=== PATIENT | female | born 1965 | race Caucasian/White ===

== ENCOUNTER → 2019-03-24 08:46 | Outpatient (BNVA) | payer BC, SELFPAY | PROVIDERS: Family Provider Family Medicine; PCP Family Medicine; Visit Provider Family Medicine | DX: E03.9 Hypothyroidism, unspecified (principal); R03.0 Elevated blood-pressure reading, without diagnosis of hypertension; Z13.220 Encounter for screening for lipoid disorders; Z13.6 Encounter for screening for cardiovascular disorders; Z13.1 Encounter for screening for diabetes mellitus; Z68.31 Body mass index [BMI] 31.0-31.9, adult | CPT/HCPCS: 80048; 80061; 84439; 84443; 84481 ==

== ENCOUNTER → 2020-02-13 16:43 | Outpatient (BNVA) | payer BC, SELFPAY | PROVIDERS: Family Provider Family Medicine; PCP Family Medicine; Visit Provider Family Medicine | DX: R03.0 Elevated blood-pressure reading, without diagnosis of hypertension (principal); E03.9 Hypothyroidism, unspecified; E83.52 Hypercalcemia; M70.52 Other bursitis of knee, left knee; M70.61 Trochanteric bursitis, right hip; R41.3 Other amnesia | CPT/HCPCS: 80048; 80061; 82652; 84443 ==

== ENCOUNTER → 2020-09-21 11:16 | Outpatient (BNVA) | payer BC, SELFPAY | PROVIDERS: Family Provider Family Medicine; PCP Family Medicine; Visit Provider Family Medicine | DX: E03.9 Hypothyroidism, unspecified (principal); R25.2 Cramp and spasm | CPT/HCPCS: 80048; 83735; 84439; 84443; 84481 ==

== ENCOUNTER → 2021-08-28 09:27 | Outpatient (BNVA) | payer OTHER, SELFPAY | PROVIDERS: Family Provider Family Medicine; PCP Family Medicine; Visit Provider Family Medicine | DX: E03.8 Other specified hypothyroidism (principal); M62.830 Muscle spasm of back; Z12.4 Encounter for screening for malignant neoplasm of cervix; Z13.1 Encounter for screening for diabetes mellitus | CPT/HCPCS: 80053; 84439; 84443; 84481; 87624 ==

== ENCOUNTER → 2022-09-01 09:40 | Outpatient (BNVA) | payer BC, SELFPAY | PROVIDERS: Family Provider Family Medicine; PCP Family Medicine; Visit Provider Family Medicine | DX: E03.9 Hypothyroidism, unspecified (principal); E03.8 Other specified hypothyroidism; Z13.1 Encounter for screening for diabetes mellitus; R03.0 Elevated blood-pressure reading, without diagnosis of hypertension; Z13.220 Encounter for screening for lipoid disorders; Z13.6 Encounter for screening for cardiovascular disorders; F51.01 Primary insomnia; Z12.11 Encounter for screening for malignant neoplasm of colon | CPT/HCPCS: 80048; 80061; 84439; 84443; 84481 ==

== ENCOUNTER → 2023-07-29 08:54 | Outpatient (BNVA) | payer BC, SELFPAY | PROVIDERS: Family Provider Family Medicine; PCP Family Medicine; Visit Provider Family Medicine | DX: G47.10 Hypersomnia, unspecified (principal); R53.83 Other fatigue; R51.9 Headache, unspecified; R82.90 Unspecified abnormal findings in urine; E03.8 Other specified hypothyroidism; Z13.6 Encounter for screening for cardiovascular disorders; Z13.1 Encounter for screening for diabetes mellitus; E03.9 Hypothyroidism, unspecified | CPT/HCPCS: 80048; 80061; 84439; 84443; 84481 ==

== ENCOUNTER → 2023-10-08 14:06 | Outpatient (BNVA) | payer BC, SELFPAY | PROVIDERS: Family Provider Family Medicine; PCP Family Medicine; Visit Provider Family Medicine | DX: R30.0 Dysuria (principal); R82.90 Unspecified abnormal findings in urine | CPT/HCPCS: 81000; 87077; 87086; 87184 ==

== ENCOUNTER → 2023-10-27 16:29 | Outpatient (BNVA) | payer BC, SELFPAY | PROVIDERS: Family Provider Family Medicine; PCP Family Medicine; Referring Provider Family Medicine; Visit Provider Family Medicine | DX: R82.90 Unspecified abnormal findings in urine (principal) | CPT/HCPCS: 81000 ==

== ENCOUNTER 2023-11-11 22:35 | Emergency (ER) | payer BC, SELFPAY ==
[2023-11-11 22:37] VITALS: BP 153/91; PULSE 107; RESP 18; TEMP 37.8; O2SAT 96; BMI 27.4
--- NOTE | 2023-11-11 22:54 | XRR_ITS ---
PROCEDURE INFORMATION: Exam: XR Chest Exam date and time: 11/11/2023 11:18 PM Age: 58 years old Clinical indication: Chest wall pain; Additional info: Fever, abd pain TECHNIQUE: Imaging protocol: Radiologic exam of the chest. Views: 1 view. COMPARISON: CT abdomen pelvis w con* [id number] 11/11/2023 11:12 PM FINDINGS: Lungs: Left lower lung zone reticular opacities representing atelectasis versus infiltrates. Pleural spaces: Unremarkable. No pleural effusion. No pneumothorax. Heart/Mediastinum: Unremarkable. No cardiomegaly. Bones/joints: Mild curvature of the thoracic spine convex to the right. XR/XR chest 1V portable [id number] IMPRESSION: Left lower lung zone reticular opacities representing atelectasis versus infiltrates.
--- NOTE | 2023-11-11 22:54 | CTR_ITS ---
PROCEDURE INFORMATION: Exam: CT Abdomen And Pelvis With Contrast Exam date and time: 11/11/2023 11:12 PM Age: 58 years old Clinical indication: Nausea and vomiting; Abdominal pain; Prior surgery; Surgery date: 6+ months; Surgery type: Tubal; Additional info: Abd pain TECHNIQUE: Imaging protocol: Computed tomography of the abdomen and pelvis with contrast. Radiation optimization: All CT scans at this facility use at least one of these dose optimization techniques: automated exposure control; mA and/or kV adjustment per patient size (includes targeted exams where dose is matched to clinical indication); or iterative reconstruction. Contrast material: OMNI 350; Contrast volume: 100 ml; Contrast route: INTRAVENOUS (IV); COMPARISON: No relevant prior studies available. RADIATION DOSE METRICS: Total DLP (mGy-cm): 818.09 FINDINGS: Lungs: Left lower lobe atelectasis. Liver: Hypodense lesion in segment 2 of the liver measuring 5.2 x 4.8 cm, most consistent with a cyst. Gallbladder and biliary ducts: Normal. No calcified stones. No ductal dilation. Pancreas: Normal. No ductal dilation. Spleen: Normal. No splenomegaly. Adrenal glands: Normal. No mass. Kidneys and ureters: Normal. No hydronephrosis. Stomach and bowel: Unremarkable. No obstruction. No mucosal thickening. Appendix: No evidence of appendicitis. Intraperitoneal space: Unremarkable. No free air. No significant fluid collection. Vasculature: Pelvic phleboliths. Lymph nodes: Unremarkable. No enlarged lymph nodes. Urinary bladder: Unremarkable as visualized. Reproductive: Unremarkable as visualized. Bones/joints: Mild curvature of the lumbar spine convex to the left. Mild degenerative of both hip joints and bilateral sacroiliac joints. Bilateral facet joint arthropathy at L4-L5 with mild anterolisthesis of L4 over L5 Soft tissues: Unremarkable. CT/CT abdomen pelvis w con* [id number] IMPRESSION: No acute intra-abdominal process.
--- NOTE | 2023-11-11 23:02 | ED_ITS ---
HPI - Abdominal Pain 2 General: Chief Complaint: Abdominal Pain Stated Complaint: severe abd back pain now n/v 2+weeks Time Seen by Provider: 11/11/23 22:54 History of Present Illness: 58-year-old female comes in today for co mplaints of abdominal and back pain x 2 weeks. Patient reports she was seen last week at her primary care office and was started on azithromycin and prednisone for a respiratory infection. Patient reported some improvement of symptoms but worsening symptoms over the last 2 days. Patient does take Otezla routinely for plaque psoriasis. Patient has no history of diabetes. Patient does take semaglutide for weight loss and levothyroxine for hypothyroidism. Patient appears nontoxic. Related Data Home Medications Medication Instructions Recorded Confirmed apremilast 30 mg tablet (Otezla) 30 mg PO BID 02/13/20 11/04/23 Previous Rx's Medication Instructions Recorded levothyroxine 75 mcg tablet 75 mcg PO QDAY 90 days #90 tabs 07/29/23 semaglutide (weight loss) 0.25 0.25 mg (0.5 mL) SUBCUT Q7D #2 mL 10/08/23 mg/0.5 mL subcutaneous pen injector (Wegovy) azithromycin 250 mg tablet See Rx Instructions PO .COMPLEX #6 11/04/23 tabs prednisone 20 mg tablet 40 mg (2 x 20 mg) PO daily #10 tabs 11/04/23 levofloxacin 750 mg tablet 750 mg PO DAILY 7 days #7 tabs 11/12/23 Allergies Allergy/AdvReac Type Severity Reaction Status Date / Time No Known Allergies Allergy Verified 11/04/23 17:21 Review of Systems 2 General: Reports: 10 or more systems reviewed and unremarkable except in HPI and below PFSH ED 2 PFSH: Medical History BMI 31.0-31.9,adult Elevated blood pressure reading without diagnosis of hypertension Hypothyroidism, unspecified Nummular eczema Surgical History H/O tubal ligation Social History Smoking and tobacco/nicotine status: never used tobacco/nicotine Second hand smoke exposure: No Alcohol intake: current Alcohol intake frequency: holidays/special occasions only Substance/Drug Use: never Adopted: No Marital status: Highest education level completed: Bachelor's Degree service: No Current occupational status: employed Current occupation: TEACHER Do you think of yourself as: Straight/Heterosexual Current gender identity: Female Female Reproductive History: Spontaneous abortions: No Physical Exam 2 Const: COMMON NORMALS: alert HENMT: COMMON NORMALS: normocephalic HEAD & SCALP: normocephalic MOUTH: Normal oral and palatal mucosa present Neck/C-Spine: COMMON NORMALS: full ROM Resp: COMMON NORMALS: normal respiratory effort and clear to auscultation bilaterally AUSCULTATION: clear to auscultation bilaterally Cardio: COMMON NORMALS: regular rate RATE: regular rate GI: COMMON NORMALS: Soft to palpation AUSCULTATION: Yes normoactive bowel sounds PALPATION: Yes Soft to palpation and Yes Tenderness to palpation present (GI) : COMMON NORMALS: Yes no CVA tenderness BLADDER/KIDNEY EXAM: Yes no CVA tenderness Back/Pelvis: COMMON NORMALS: no CVA tenderness LUMBAR SPINE/LOWER BACK: Yes lumbar spinal tenderness Extremity: COMMON NORMALS: normal to inspection Neuro: SENSORIUM/ORIENTATION: Yes alert Skin: COMMON NORMALS: turgor normal GENERAL SKIN EXAM: turgor normal Course 2 Vital Signs: Vital signs: Vital Signs Temperature 100.0 F H 11/11/23 22:37 Pulse Rate 91 11/11/23 23:35 Respiratory Rate 24 H 11/11/23 23:35 Blood Pressure 147/114 11/11/23 23:35 Pulse Oximetry 94 11/11/23 23:35 Oxygen Delivery Me thod Room Air 11/11/23 22:37 MDM - Abdominal Pain Medical Decision Making 58-year-old female comes in today for complaints of bodyaches, cough, abdominal pain, and back pain. Patient was treated on Thursday of last week with prednisone and azithromycin. Patient does receive a biologic agent for her plaque psoriasis. Vital signs note a pulse of 107 and a temperature of 100. Differential diagnosis includes but not limited to discitis, pneumonia, gallbladder disease, pancreatitis, appendicitis, diverticulitis, urinary tract infection pyelonephritis. CBC noted a mild leukocytosis 11,000. CMP showed creatinine 1.0 and blood glucose 135. Urinalysis had increased red blood cells and white blood cells in the urine. Chest x-ray noted some left lower lung atelectasis suspicious for infiltrate. Abdomen CT noted no intra-abdominal processes. Reviewed exam with patient recommended treatment with Levaquin for pneumonia. Patient should drink plenty of fluids return to the ER for worsening symptoms follow-up with primary care otherwise in 1 week. Patient reported understanding agreed to plan. Lab Data 11/11/23 23:10 11/11/23 23:10 Labs/Radiology: Radiology Impressions Abdomen/Pelvis CT 11/11/23 22:54 IMPRESSION: No acute intra-abdominal process. Chest X-Ray 11/11/23 22:54 IMPRESSION: Left lower lung zone reticular opacities representing atelectasis versus infiltrates. Laboratory Results WBC 11.08 10^3/uL (3.29-11.43) 11/11/23 23:10 RBC 3.48 10^6/uL (3.85-5.65) L 11/11/23 23:10 Hgb 10.80 g/dL (11.27-16.99) L 11/11/23 23:10 Hct 32.3 % (36-47) L 11/11/23 23:10 MCV 92.8 fl (85-98) 11/11/23 23:10 MCH 31.0 pg (27-33) 11/11/23 23:10 MCHC 33.4 g/dL (30-55) 11/11/23 23:10 RDW 13.2 % (12.1-15.1) 11/11/23 23:10 Plt Count 478 10^3/cmm (157-399) H 11/11/23 23:10 MPV 8.6 fL (7.4-10.4) 11/11/23 23:10 Neut % (Auto) 74.2 % 11/11/23 23:10 Lymph % (Auto) 18.9 % 11/11/23 23:10 [place] % (Auto) 4.2 % 11/11/23 23:10 Eos % (Auto) 0.2 % 11/11/23 23:10 Baso % (Auto) 0.2 % 11/11/23 23:10 Neut # (Auto) 8.22 10^3/uL (1.8-7.7) H 11/11/23 23:10 Lymph # (Auto) 2.1 10^3/uL (0.8-4.8) 11/11/23 23:10 [place] # (Auto) 0.5 10^3/uL (0.2-0.9) 11/11/23 23:10 Eos # (Auto) 0.0 10^3/uL (0.0-0.8) 11/11/23 23:10 Baso # (Auto) 0.0 10^3/uL (0.0-0.1) 11/11/23 23:10 Nucleated RBC % (auto) 0 % 11/11/23 23:10 Nucleated RBCs # 0.0 /100WBC 11/11/23 23:10 Sodium 136 mmol/L (136-145) 11/11/23 23:10 Potassium 4.2 mmol/L (3.5-5.1) 11/11/23 23:10 Chloride 98 mmol/L (98-107) 11/11/23 23:10 Carbon Dioxide 24 mmol/L (22-29) 11/11/23 23:10 Anion Gap 18.2 (5-19) 11/11/23 23:10 BUN 24 mg/dL (6-20) H 11/11/23 23:10 Creatinine 1.0 mg/dL (0.5-0.9) H 11/11/23 23:10 GFR Calculation 56.9 mL/min (90-130) L 11/11/23 23:10 Glucose 135 mg/dL (65-115) H 11/11/23 23:10 Calculated Osmolality 288 mOsm/kg (285-295) 11/11/23 23:10 Lactic Acid 1.2 mmol/L (0.5-2.2) 11/11/23 23:10 Calcium 9.5 mg/dL (8.5-10.5) 11/11/23 23:10 Total Bilirubin 0.5 mg/dL (0.15-1.2) 11/11/23 23:10 AST 18 U/L (0-32) 11/11/23 23:10 ALT 53 U/L (0-33) H 11/11/23 23:10 Alkaline Phosphatase 183 U/L (35-105) H 11/11/23 23:10 C-Reactive Protein 91.7 mg/L (0.0-4.9) H 11/11/23 23:10 Total Protein 7.4 g/dL (6.6-8.7) 11/11/23 23:10 Albumin 3.6 g/dL (3.5-5.2) 11/11/23 23:10 Globulin 3.8 g/dL (1.3-4.6) 11/11/23 23:10 Urine Color Yellow (Yellow) 11/11/23 22:40 Urine Appearance Clear (CLEAR) 11/11/23 22:40 Urine pH 5.5 (5-7) 11/11/23 22:40 Ur Specific [place] 1.009 (1.005-1.030) 11/11/23 22:40 Urine Protein 1+ (Negative) A 11/11/23 22:40 Urine Glucose (UA) Negative (Normal) 11/11/23 22:40 Urine Ketones Negative (Negative) 11/11/23 22:40 Urine Blood 3+ (Negative) A 11/11/23 22:40 Urine Nitrate Negative (Negative) 11/11/23 22:40 Urine Bilirubin Negative (Negative) 11/11/23 22:40 Urine Urobilinogen 0.2 mg/dL (Negative) 11/11/23 22:40 Ur Leukocyte Esterase 1+ (Negative) A 11/11/23 22:40 Urine RBC 25-40 /hpf (0-2) H 11/11/23 22:40 Urine WBC 21-50 /hpf (0-5) H 11/11/23 22:40 Ur Squamous Epith Cells 0-4 /hpf (0-5) H 11/11/23 22:40 Amorphous Sediment Not Reportable 11/11/23 22:40 Urine Bacteria 1+ /hpf (NONE) H 11/11/23 22:40 No radiology studies performed this visit Discharge Plan Discharge Patient Disposition: Home Clinical Impression: Pneumonia Qualifiers: Pneumonia type: due to unspecified organism Laterality: left Lung location: l ower lobe of lung Qualified Code(s): J18.9 - Pneumonia, unspecified organism UTI (urinary tract infection) Qualifiers: Urinary tract infection type: acute cystitis Hematuria presence: with hematuria Qualified Code(s): N30.01 - Acute cystitis with hematuria Condition: Stable Prescriptions: New levofloxacin 750 mg tablet 750 mg PO DAILY 7 Days Qty: 7 0RF No Action Otezla 30 mg tablet 30 mg PO BID levothyroxine 75 mcg tablet 75 mcg PO QDAY 90 Days Qty: 90 3RF azithromycin 250 mg tablet See Rx Instructions PO .COMPLEX Qty: 6 0RF Rx Instructions: For 250 mg dose pack: take 500 mg today (day 1), then 250 mg for 4 days (days 2-5) PO prednisone 20 mg tablet 40 mg PO daily Qty: 10 0RF Wegovy 0.25 mg/0.5 mL pen injector 0.25 mg SUBCUT Q7D Qty: 2 0RF Discharge Orders: Discharge ED (Routine); Ordered 11/12/23 Ordered By: Nitin Layton Referrals: Paula Mireles MD [Primary Care Provider] - Discharge Diet: Advance as tolerated Discharge Activity: Increase activity as tolerated Patient Instructions: Pneumonia (ED) Activity Restrictions/Additional Instructions: Drink plenty of water and fluids. Take antibiotic as directed. Follow-up with primary care in 1 week for recheck. Return to ED for worsening shortness of breath, inability to hold fluids down, or new concerns. Coding Level of Care Code ED Child Nurse for Bambi Rios
[2023-11-11] MEDS: iohexol 350 mg/mL 500 mL Btl (per mL) IV (23:16)
[2023-11-11 23:18] LABS: Basophils % 0.2 %; Eosinophils % 0.2 %; Hematocrit 32.3 % (36-47); Lymphocytes # 2.1 10^3/uL (0.8-4.8); Lymphocytes % 18.9 %; Mean Corpuscular HGB Conc 33.4 g/dL (30-55); Mean Corpuscular Volume 92.8 fl (85-98); Mean Platelet Volume 8.6 fL (7.4-10.4); Monocytes # 0.5 10^3/uL (0.2-0.9); Monocytes % 4.2 %; Neutrophils # 8.22 10^3/uL (1.8-7.7); Neutrophils % 74.2 %; Nucleated Red Blood Cells % 0 %; Platelet Count 478 10^3/cmm (157-399); Red Blood Count 3.48 10^6/uL (3.85-5.65); Red Cell Distribution Width 13.2 % (12.1-15.1); White Blood Count 11.08 10^3/uL (3.29-11.43)
[2023-11-11] MEDS: ketorolac 30 mg/mL INJ 15 MG IVP (23:29)
[2023-11-11 23:30] LABS: Charge for UA Resulting for Rev
[2023-11-11 23:34] LABS: Bilirubin Urine Negative (Negative); Blood Urine 3+ (Negative); Glucose Urine UA Negative (Normal); Ketones Urine Negative (Negative); Leukocyte Esterase Urine 1+ (Negative); Nitrate Urine Negative (Negative); Protein Urine 1+ (Negative); Specific Gravity, Urine 1.009 (1.005-1.030); Urine Appearance Clear (CLEAR); Urine Color Yellow (Yellow); Urobilinogen Urine 0.2 mg/dL (Negative); pH Urine 5.5 (5-7)
[2023-11-11] MEDS: sodium chloride 0.9% 1,000 ML 999 ML IV (23:34)
[2023-11-11] MEDS: piperacillin-tazobactam 4.5 GM in sodium chloride 0.9% (plus) 50 ML IV (23:34)
[2023-11-11 23:35] VITALS: BP 147/114; PULSE 91; RESP 24; O2SAT 94
[2023-11-11 23:35] LABS: Alanine Aminotransferase 53 U/L (0-33); Albumin Level 3.6 g/dL (3.5-5.2); Alkaline Phosphatase 183 U/L (35-105); Anion Gap 18.2 (5-19); Aspartate Amino Transferase 18 U/L (0-32); Blood Urea Nitrogen 24 mg/dL (6-20); C Reactive Protein 91.7 mg/L (0.0-4.9); Calcium 9.5 mg/dL (8.5-10.5); Carbon Dioxide 24 mmol/L (22-29); Chloride 98 mmol/L (98-107); Creatinine Clr Calc Pharmacy 64.3025; Globulin 3.8 g/dL (1.3-4.6); Glomerular Filtration Rate 56.9 mL/min (90-130); Glucose 135 mg/dL (65-115); Osmolality Calculated 288 mOsm/kg (285-295); Potassium 4.2 mmol/L (3.5-5.1); Sodium 136 mmol/L (136-145); Total Bilirubin 0.5 mg/dL (0.15-1.2); Total Protein 7.4 g/dL (6.6-8.7)
[2023-11-11 23:36] LABS: Lactic Sepsis W/Reflex 1.2 mmol/L (0.5-2.2)
[2023-11-11 23:56] LABS: Bacteria Urine 1+ /hpf; RBC Urine 25-40 /hpf (0-2); Squamous Epithelial Cell Urine 0-4 /hpf (0-5); WBC Urine 21-50 /hpf (0-5)
[2023-11-11 23:57] LABS: Add Urine Culture? Yes
[2023-11-12] MEDS: levoFLOXacin 750 mg Tablet PO (00:28)
[2023-11-12 00:37] VITALS: BP 122/73; PULSE 78; RESP 20; O2SAT 97
[2023-11-12 01:34] LABS: Adenovirus Not Detected (NOT DETECT); Chlamydia Pneumoniae Not Detected (NOT DETECT); Coronavirus 229E,HKU1,NL63,OC4 Not Detected (NOT DETECT); Human Metapneumovirus Not Detected (NOT DETECT); Human Rhinovirus/Enterovirus Not Detected (NOT DETECT); Influenza A Not Detected (NOT DETECT); Influenza A H1 Not Detected (NOT DETECT); Influenza A H1-2009 Not Detected (NOT DETECT); Influenza A H3 Not Detected (NOT DETECT); Influenza B Not Detected (NOT DETECT); Mycoplasma Pneumoniae Not Detected (NOT DETECT); Parainfluenza Virus Type 1 Not Detected (NOT DETECT); Parainfluenza Virus Type 2 Not Detected (NOT DETECT); Parainfluenza Virus Type 3 Not Detected (NOT DETECT); Parainfluenza Virus Type 4 Not Detected (NOT DETECT); Respiratory Syncytial Virus A Not Detected (NOT DETECT); Respiratory Syncytial Virus B Not Detected (NOT DETECT); SARS-COV-2 Not Detected (NOT DETECT)
[2023-11-12 02:12] LABS: Lipase 54 U/L (13-60)
== END 2023-11-12 00:39 | disposition home or self-care (01) ==
PROVIDERS: Emergency Provider Nurse Practitioner Family; PCP Family Medicine
DX: J18.9 Pneumonia, unspecified organism (principal); N30.01 Acute cystitis with hematuria; Z79.85 Long-term (current) use of injectable non-insulin antidiabetic drugs
CPT/HCPCS: 36415; 71045; 74177; 80053; 81003; 81015; 83605; 83690; 85025; 86140; 87040; 87077; 87086; 87186; 87486; 87581; 87633; 96365; 96375; 99285; J1885; J2543; J7030

== ENCOUNTER 2024-01-18 15:20 | Emergency (ER) | payer BC, SELFPAY ==
[2024-01-18 15:31] VITALS: BP 169/95; PULSE 73; RESP 16; TEMP 36.8; O2SAT 97; BMI 27.4
[2024-01-18 17:37] VITALS: BP 180/102; PULSE 66; RESP 18; O2SAT 98
--- NOTE | 2024-01-18 17:38 | W.ED.HA ---
Documented by User: Adriel Harris DO 01/19/24 06:01 HPI - Headache General: Chief Complaint: Headache Stated Complaint: headaches Time Seen by Provider: 01/18/24 17:09 History of Present Illness: 58-year-old female presents emergency room complaining of various longstanding issues. Her blood pressure has been elevated she has a frontal headache it is also somewhat across the right maxillary sinus. At times she states she feels like when she exhales she gets air in her ear. She is not really taken week for been evaluated for this. She has not noticed anything exacerbates or relieves it. She has a history of mild hypertension she also was on medications for psoriasis. She is on semaglutide for weight loss. She has no history of any arrhythmias or coronary disease. Associated symptoms: Deny chest pain, fever(s) or rash Related Data Home Medications Medication Instructions Recorded Confirmed apremilast 30 mg tablet (Otezla) 30 mg PO BID 02/13/20 11/23/23 Previous Rx's Medication Instructions Recorded levothyroxine 75 mcg tablet 75 mcg PO QDAY 90 days #90 tabs 07/29/23 semaglutide (weight loss) 0.25 0.25 mg (0.5 mL) SUBCUT Q7D #2 mL 10/08/23 mg/0.5 mL subcutaneous pen injector (Wegovy) Allergies Allergy/AdvReac Type Severity Reaction Status Date / Time No Known Allergies Allergy Verified 01/18/24 15:37 Review of Systems Const: Denies: fever(s) or chills Card: Denies: chest pain Resp: Denies: dyspnea GI: Denies: abdominal pain : Denies: dysuria, urinary frequency or urinary urgency Musc: Denies: neck pain or back pain Skin/Breast: Denies: rash PFSH ED PFSH: Medical History Elevated blood pressure reading without diagnosis of hypertension BMI 31.0-31.9,adult Hypothyroidism, unspecified Nummular eczema Surgical History H/O tubal ligation Social History Smoking and tobacco/nicotine status: never used tobacco/nicotine Second hand smoke exposure: No Alcohol intake: current Alcohol intake frequency: holidays/special occasions only Substance/Drug Use: never Adopted: No Marital status: Highest education level completed: Bachelor's Degree service: No Current occupational status: employed Current occupation: TEACHER Do you think of yourself as: Straight/Heterosexual Current gender identity: Female Female Reproductive History: Spontaneous abortions: No Physical Exam Const: COMMON NORMALS: no acute distress GENERAL APPEARANCE: cooperative and comfortable ORIENTATION/CONSCIOUSNESS: Yes awake, Yes oriented to person, Yes oriented to place and Yes oriented to time HENMT: COMMON NORMALS: normocephalic, atraumatic and hearing grossly normal bilaterally HEAD & SCALP: normocephalic and atraumatic Resp: COMMON NORMALS: normal respiratory effort, No retractions, No use of accessory muscles and clear to auscultation bilaterally AUSCULTATION: clear to auscultation bilaterally Cardio: COMMON NORMALS: regular rate, regular rhythm and No murmurs present (Cardio) RATE: regular rate RHYTHM: regular rhythm GI: COMMON NORMALS: Soft to palpation and No hepatosplenomegaly present AUSCULTATION: Yes normoactive bowel sounds PALPATION: Yes Soft to palpation, No Tenderness to palpation present (GI), No Guarding due to palpation present (GI) and Yes No hepatosplenomegaly present Extremity: COMMON NORMALS: normal to inspection, capillary refill normal, no clubbing, cyanosis or edema, no calf tenderness and no pedal edema Neuro: SENSORIUM/ORIENTATION: Yes oriented to person, Yes oriented to place and Yes oriented to time Skin: COMMON NORMALS: no rashes or lesions noted GENERAL SKIN EXAM: no rashes or lesions noted Course Vital Signs: Vital signs: Vital Signs Temperature 98.3 F 01/18/24 15:31 Pulse Rate 71 01/18/24 19:29 Respiratory Rate 20 H 01/18/24 19:29 Blood Pressure 150/86 01/18/24 19:29 Pulse Oximetry 95 01/18/24 19:29 Oxygen Delivery Nh thod Room Air 01/18/24 17:37 MDM - Headache Medical Decision Making Care signed out to Dr. Rodriguez at change of shift. See final notes for diagnosis and disposition. Patient care was transitioned to sc at shift change pending labs and CT scan. Lab work is unremarkable. CT head: No acute intracranial process. no intracranial hemorrhage, no evidence of infarct. no evidence of acute fracture.This was reviewed and interpreted by myself the ER physician. Reexamination: Patient remained stable. No focal motor deficits. Altered mental status. Her blood pressure is high normal. We discussed treatment of her blood pressure over time with her primary. Also discussed possibly trying some Benadryl for her ear and sinus symptoms and headache when she sleeps. Assessment and plan: Headache Hypertension - Discharged home - Discussed findings and plan with patient. Answered any questions. - All laboratory values were reviewed and interpreted personally by myself, the ER physician - All imaging was reviewed and interpreted personally by myself, the ER physician. - Evaluation and treatment of this problem were appropriate in the emergency setting Lab Data 01/18/24 17:56 01/18/24 17:[address] 01/18/24 18:04 IMPRESSION: No acute intracranial abnormality. Laboratory Results WBC 6.24 10^3/uL (3.29-11.43) 01/18/24 17:56 RBC 3.94 10^6/uL (3.85-5.65) 01/18/24 17:56 Hgb 11.90 g/dL (11.27-16.99) 01/18/24 17:56 Hct 36.1 % (36-47) 01/18/24 17:56 MCV 91.6 fl (85-98) 01/18/24 17:56 MCH 30.2 pg (27-33) 01/18/24 17:56 MCHC 33.0 g/dL (30-55) 01/18/24 17:56 RDW 13.2 % (12.1-15.1) 01/18/24 17:56 Plt Count 282 10^3/cmm (157-399) 01/18/24 17:56 MPV 9.2 fL (7.4-10.4) 01/18/24 17:56 Neut % (Auto) 33.9 % 01/18/24 17:56 Lymph % (Auto) 59.0 % 01/18/24 17:56 [place] % (Auto) 5.3 % 01/18/24 17:56 Eos % (Auto) 1.3 % 01/18/24 17:56 Baso % (Auto) 0.3 % 01/18/24 17:56 Neut # (Auto) 2.12 10^3/uL (1.8-7.7) 01/18/24 17:56 Lymph # (Auto) 3.7 10^3/uL (0.8-4.8) 01/18/24 17:56 [place] # (Auto) 0.3 10^3/uL (0.2-0.9) 01/18/24 17:56 Eos # (Auto) 0.1 10^3/uL (0.0-0.8) 01/18/24 17:56 Baso # (Auto) 0.0 10^3/uL (0.0-0.1) 01/18/24 17:56 Nucleated RBC % (auto) 0 % 01/18/24 17:56 Nucleated RBCs # 0.0 /100WBC 01/18/24 17:56 D-Dimer 0.43 ug/mLFEU (0-0.59) 01/18/24 17:56 Sodium 139 mmol/L (136-145) 01/18/24 17:56 Potassium 3.8 mmol/L (3.5-5.1) 01/18/24 17:56 Chloride 101 mmol/L (98-107) 01/18/24 17:56 Carbon Dioxide 27 mmol/L (22-29) 01/18/24 17:56 Anion Gap 14.8 (5-19) 01/18/24 17:56 BUN 17 mg/dL (6-20) 01/18/24 17:56 Creatinine 0.7 mg/dL (0.5-0.9) 01/18/24 17:56 GFR Calculation 85.9 mL/min (90-130) L 01/18/24 17:56 Glucose 96 mg/dL (65-115) 01/18/24 17:56 Calculated Osmolality 289 mOsm/kg (285-295) 01/18/24 17:56 Calcium 9.7 mg/dL (8.5-10.5) 01/18/24 17:56 Total Bilirubin 0.5 mg/dL (0.15-1.2) 01/18/24 17:56 AST 25 U/L (0-32) 01/18/24 17:56 ALT 34 U/L (0-33) H 01/18/24 17:56 Alkaline Phosphatase 112 U/L (35-105) H 01/18/24 17:56 Total Protein 7.1 g/dL (6.6-8.7) 01/18/24 17:56 Albumin 4.6 g/dL (3.5-5.2) 01/18/24 17:56 Globulin 2.5 g/dL (1.3-4.6) 01/18/24 17:56 Lipase 47 U/L (13-60) 01/18/24 17:56 Discharge Plan Discharge Patient Disposition: Home Clinical Impression: Headache, Hypertension Condition: Stable Prescriptions: No Action Otezla 30 mg tablet 30 mg PO BID levothyroxine 75 mcg tablet 75 mcg PO QDAY 90 Days Qty: 90 3RF Wegovy 0.25 mg/0.5 mL pen injector 0.25 mg SUBCUT Q7D Qty: 2 0RF Discharge Orders: Discharge ED (Routine); Ordered 01/18/24 Ordered By: Aicha Rodriguez Referrals: Paula Mireles MD [Primary Care Provider] - Discharge Diet: Usual diet Discharge Activity: Increase activity as tolerated Patient Instructions: Acute Headache (ED), Opioid Safety, Pain Management Activity Restrictions/Additional Instructions: Thank you for choosing [facility] for your healthcare needs today. Please realize this is an emergency room and that we are providing you with a medical screening exam and this may not be complete and all inclusive of all the testing and or work up that you may need to determine your ailment or severity of your illness. You have been screened and evaluated and felt safe for discharge. Health conditions do change or evolve sometimes and as such it is important that you follow up with your Primary Doctor to be re checked, 3-5 days is a general good time frame for follow up. You are always welcome to return to the ED for re assessment if your symptoms are worsening or you have new concerns Coding Level of Care Code ED Improvement Director for Chg Fwd Documented by User: Aicha Rodriguez MD 01/18/24 19:13 HPI - Headache General: Chief Complaint: Headache Stated Complaint: headaches Time Seen by Provider: 01/18/24 17:09 Related Data Home Medications Medication Instructions Recorded Confirmed apremilast 30 mg tablet (Otezla) 30 mg PO BID 02/13/20 11/23/23 Previous Rx's Medication Instructions Recorded levothyroxine 75 mcg tablet 75 mcg PO QDAY 90 days #90 tabs 07/29/23 semaglutide (weight loss) 0.25 0.25 mg (0.5 mL) SUBCUT Q7D #2 mL 10/08/23 mg/0.5 mL subcutaneous pen injector (Wegovy) Allergies Allergy/AdvReac Type Severity Reaction Status Date / Time No Known Allergies Allergy Verified 01/18/24 15:37 [facility] ED PFSH: Medical History Elevated blood pressure reading without diagnosis of hypertension BMI 31.0-31.9,adult Hypothyroidism, unspecified Nummular eczema Surgical History H/O tubal ligation Social History Smoking and tobacco/nicotine status: never used tobacco/nicotine Second hand smoke exposure: No Alcohol intake: current Alcohol intake frequency: holidays/special occasions only Substance/Drug Use: never Adopted: No Marital status: Highest education level completed: Bachelor's Degree service: No Current occupational status: employed Current occupation: TEACHER Do you think of yourself as: Straight/Heterosexual Current gender identity: Female Course Vital Signs: Vital signs: Vital Signs Temperature 98.3 F 01/18/24 15:31 Pulse Rate 71 01/18/24 19:29 Respiratory Rate 20 H 01/18/24 19:29 Blood Pressure 150/86 01/18/24 19:29 Pulse Oximetry 95 01/18/24 19:29 Oxygen Delivery Nh thod Room Air 01/18/24 17:37 MDM - Headache Medical Decision Making Patient care was transitioned to sc at shift change pending labs and CT scan. Lab work is unremarkable. CT head: No acute intracranial process. no intracranial hemorrhage, no evidence of infarct. no evidence of acute fracture.This was reviewed and interpreted by myself the ER physician. Reexamination: Patient remained stable. No focal motor deficits. Altered mental status. Her blood pressure is high normal. We discussed treatment of her blood pressure over time with her primary. Also discussed possibly trying some Benadryl for her ear and sinus symptoms and headache when she sleeps. Assessment and plan: Headache Hypertension - Discharged home - Discussed findings and plan with patient. Answered any questions. - All laboratory values were reviewed and interpreted personally by myself, the ER physician - All imaging was reviewed and interpreted personally by myself, the ER physician. - Evaluation and treatment of this problem were appropriate in the emergency setting Lab Data 01/18/24 17:56 01/18/24 17:[address] 01/18/24 18:04 IMPRESSION: No acute intracranial abnormality. Laboratory Results WBC 6.24 10^3/uL (3.29-11.43) 01/18/24 17:56 RBC 3.94 10^6/uL (3.85-5.65) 01/18/24 17:56 Hgb 11.90 g/dL (11.27-16.99) 01/18/24 17:56 Hct 36.1 % (36-47) 01/18/24 17:56 MCV 91.6 fl (85-98) 01/18/24 17:56 MCH 30.2 pg (27-33) 01/18/24 17:56 MCHC 33.0 g/dL (30-55) 01/18/24 17:56 RDW 13.2 % (12.1-15.1) 01/18/24 17:56 Plt Count 282 10^3/cmm (157-399) 01/18/24 17:56 MPV 9.2 fL (7.4-10.4) 01/18/24 17:56 Neut % (Auto) 33.9 % 01/18/24 17:56 Lymph % (Auto) 59.0 % 01/18/24 17:56 [place] % (Auto) 5.3 % 01/18/24 17:56 Eos % (Auto) 1.3 % 01/18/24 17:56 Baso % (Auto) 0.3 % 01/18/24 17:56 Neut # (Auto) 2.12 10^3/uL (1.8-7.7) 01/18/24 17:56 Lymph # (Auto) 3.7 10^3/uL (0.8-4.8) 01/18/24 17:56 [place] # (Auto) 0.3 10^3/uL (0.2-0.9) 01/18/24 17:56 Eos # (Auto) 0.1 10^3/uL (0.0-0.8) 01/18/24 17:56 Baso # (Auto) 0.0 10^3/uL (0.0-0.1) 01/18/24 17:56 Nucleated RBC % (auto) 0 % 01/18/24 17:56 Nucleated RBCs # 0.0 /100WBC 01/18/24 17:56 D-Dimer 0.43 ug/mLFEU (0-0.59) 01/18/24 17:56 Sodium 139 mmol/L (136-145) 01/18/24 17:56 Potassium 3.8 mmol/L (3.5-5.1) 01/18/24 17:56 Chloride 101 mmol/L (98-107) 01/18/24 17:56 Carbon Dioxide 27 mmol/L (22-29) 01/18/24 17:56 Anion Gap 14.8 (5-19) 01/18/24 17:56 BUN 17 mg/dL (6-20) 01/18/24 17:56 Creatinine 0.7 mg/dL (0.5-0.9) 01/18/24 17:56 GFR Calculation 85.9 mL/min (90-130) L 01/18/24 17:56 Glucose 96 mg/dL (65-115) 01/18/24 17:56 Calculated Osmolality 289 mOsm/kg (285-295) 01/18/24 17:56 Calcium 9.7 mg/dL (8.5-10.5) 01/18/24 17:56 Total Bilirubin 0.5 mg/dL (0.15-1.2) 01/18/24 17:56 AST 25 U/L (0-32) 01/18/24 17:56 ALT 34 U/L (0-33) H 01/18/24 17:56 Alkaline Phosphatase 112 U/L (35-105) H 01/18/24 17:56 Total Protein 7.1 g/dL (6.6-8.7) 01/18/24 17:56 Albumin 4.6 g/dL (3.5-5.2) 01/18/24 17:56 Globulin 2.5 g/dL (1.3-4.6) 01/18/24 17:56 Lipase 47 U/L (13-60) 01/18/24 17:56 All radiology interpretation(s) finalized by discharge Discharge Plan Discharge Patient Disposition: Home Clinical Impression: Headache, Hypertension Condition: Stable Prescriptions: No Action Otezla 30 mg tablet 30 mg PO BID levothyroxine 75 mcg tablet 75 mcg PO QDAY 90 Days Qty: 90 3RF Wegovy 0.25 mg/0.5 mL pen injector 0.25 mg SUBCUT Q7D Qty: 2 0RF Discharge Orders: Discharge ED (Routine); Ordered 01/18/24 Ordered By: Aicha Rodriguez Referrals: Paula Mireles MD [Primary Care Provider] - Discharge Diet: Usual diet Discharge Activity: Increase activity as tolerated Patient Instructions: Acute Headache (ED), Opioid Safety, Pain Management Activity Restrictions/Additional Instructions: Thank you for choosing [facility] for your healthcare needs today. Please realize this is an emergency room and that we are providing you with a medical screening exam and this may not be complete and all inclusive of all the testing and or work up that you may need to determine your ailment or severity of your illness. You have been screened and evaluated and felt safe for discharge. Health conditions do change or evolve sometimes and as such it is important that you follow up with your Primary Doctor to be re checked, 3-5 days is a general good time frame for follow up. You are always welcome to return to the ED for re assessment if your symptoms are worsening or you have new concerns Coding Level of Care Code ED Improvement Director for Bambi Rios
--- NOTE | 2024-01-18 17:53 | ECG_ITS ---
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 Measurements Intervals [place] Rate: 58 P: 45 WA: 166 QRS: 16 QRSD: 93 T: 38 QT: 403 QTc: 397 Interpretive Statements SINUS BRADYCARDIA LOW QRS VOLTAGE IN PRECORDIAL LEADS [QRS DEFLECTION < 1.0 mV IN CHEST LEADS] POSSIBLE ANTERIOR MYOCARDIAL INFARCTION , OF INDETERMINATE AGE [30 ms Q WAVE IN V3/V4, OR R < 0.2 mV IN V4] No previous ECG available for comparison Electronically Signed On 01-21-2024 21:45:42 BUSINESS UNIT LEADER by Sandip Watts M.D. [email or web address]
--- NOTE | 2024-01-18 18:04 | CTR_ITS ---
PROCEDURE INFORMATION: Exam: CT Head Without Contrast Exam date and time: 01/18/2024 6:12 PM Age: 58 years old Clinical indication: Pain; Headache not specified TECHNIQUE: Imaging protocol: Computed tomography of the head without contrast. Radiation optimization: All CT scans at this facility use at least one of these dose optimization techniques: automated exposure control; mA and/or kV adjustment per patient size (includes targeted exams where dose is matched to clinical indication); or iterative reconstruction. COMPARISON: No relevant prior studies available. RADIATION DOSE METRICS: Total DLP (mGy-cm): 1000.38 FINDINGS: Brain: Normal. No hemorrhage. Unremarkable white matter. No mass effect. Cerebral ventricles: No ventriculomegaly. Paranasal sinuses: Visualized sinuses are unremarkable. No fluid levels. Mastoid air cells: Visualized mastoid air cells are well aerated. Bones: Unremarkable. No acute fracture. Soft tissues: Unremarkable. CT/CT head wo con* [id number] IMPRESSION: No acute intracranial abnormality.
[2024-01-18 18:07] LABS: Basophils % 0.3 %; Eosinophils # 0.1 10^3/uL (0.0-0.8); Eosinophils % 1.3 %; Hematocrit 36.1 % (36-47); Lymphocytes # 3.7 10^3/uL (0.8-4.8); Mean Corpuscular Hemoglobin 30.2 pg (27-33); Mean Corpuscular Volume 91.6 fl (85-98); Mean Platelet Volume 9.2 fL (7.4-10.4); Monocytes # 0.3 10^3/uL (0.2-0.9); Monocytes % 5.3 %; Neutrophils # 2.12 10^3/uL (1.8-7.7); Neutrophils % 33.9 %; Nucleated Red Blood Cells % 0 %; Platelet Count 282 10^3/cmm (157-399); Red Blood Count 3.94 10^6/uL (3.85-5.65); Red Cell Distribution Width 13.2 % (12.1-15.1); White Blood Count 6.24 10^3/uL (3.29-11.43)
[2024-01-18 18:29] LABS: Alanine Aminotransferase 34 U/L (0-33); Albumin Level 4.6 g/dL (3.5-5.2); Alkaline Phosphatase 112 U/L (35-105); Anion Gap 14.8 (5-19); Aspartate Amino Transferase 25 U/L (0-32); Blood Urea Nitrogen 17 mg/dL (6-20); Calcium 9.7 mg/dL (8.5-10.5); Carbon Dioxide 27 mmol/L (22-29); Chloride 101 mmol/L (98-107); Creatinine Clr Calc Pharmacy 91.8607; Globulin 2.5 g/dL (1.3-4.6); Glomerular Filtration Rate 85.9 mL/min (90-130); Glucose 96 mg/dL (65-115); Lipase 47 U/L (13-60); Osmolality Calculated 289 mOsm/kg (285-295); Potassium 3.8 mmol/L (3.5-5.1); Sodium 139 mmol/L (136-145); Total Bilirubin 0.5 mg/dL (0.15-1.2); Total Protein 7.1 g/dL (6.6-8.7)
[2024-01-18 18:30] VITALS: BP 150/88; PULSE 67; O2SAT 95
[2024-01-18 18:39] LABS: D Dimer 0.43 ug/mLFEU (0-0.59)
[2024-01-18 19:29] VITALS: BP 150/86; PULSE 71; RESP 20; O2SAT 95
== END 2024-01-18 19:32 | disposition home or self-care (01) ==
PROVIDERS: Family Medicine; Emergency Provider Emergency Medicine; PCP Family Medicine
DX: R51.9 Headache, unspecified (principal); I10 Essential (primary) hypertension
CPT/HCPCS: 70450; 80053; 83690; 85025; 85378; 93005; 99284

== ENCOUNTER → 2024-08-02 10:21 | Outpatient (BNVA) | payer BC, SELFPAY | PROVIDERS: PCP Family Medicine; Visit Provider Family Medicine | DX: E03.8 Other specified hypothyroidism (principal); Z13.220 Encounter for screening for lipoid disorders; Z13.6 Encounter for screening for cardiovascular disorders; E03.9 Hypothyroidism, unspecified | CPT/HCPCS: 80048; 80061; 84439; 84443; 84481 ==